=== PATIENT | female | born 1935 | race Caucasian/White ===

== ENCOUNTER 2018-05-15 18:29 | Emergency (ER) | payer OTHER ==
[~2018-05-15] VITALS: Ht 152.4 cm; Wt 73.9 kg
[2018-05-15 18:38] VITALS: BP 136/50
--- NOTE | 2018-05-15 19:15 | NUR ---
PT TO ED WITH C/O NAUSEA AND DIZZINESS X 1 DAY. NO NEURO DEFECITS NOTED. PT IS ALERT TO NAME, PLACE, BIRTHDAY, AND EVENT. ABD IS SOFT, NON TENDER. BOWEL SOUNDS PRESENT. PT PLACED INTO BED, PENDING MD DOAN. PMH--HTN, DM
[2018-05-15] MEDS ORDERED: MECLIZINE 25 MG TAB PO ONE (19:50)
--- NOTE | 2018-05-15 21:21 | NUR ---
Patient discharged with v/s stable. Written and verbal after care instructions given and explained. Patient alert, oriented and verbalized understanding of instructions. Ambulatory with steady gait. All questions addressed prior to discharge. ID band removed. Patient advised to follow up with PMD. Rx of MECLIZINE, FLONASE given. Patient educated on indication of medication including possible reaction and side effects. Opportunity to ask questions provided and answered.
[2018-05-15 21:22] VITALS: BP 131/61
== END 2018-05-15 21:22 | disposition home or self-care (01) ==
LOC: MED 18:29
DX: J32.9 Chronic sinusitis, unspecified (principal); I10 Essential (primary) hypertension; E11.9 Type 2 diabetes mellitus without complications; Z88.5 Allergy status to narcotic agent
CPT/HCPCS: 70450; 81002; 99284; J8597